=== PATIENT | male | born 1950 | race Caucasian/White ===

== ENCOUNTER 2017-12-15 09:15 | Day surgery (SDC) | payer BC ==
[2017-12-15] MEDS ORDERED: Propofol 200 MG/20 ML SDV ONE (11:30)
--- NOTE | 2017-12-15 17:29 | OR ---
DATE OF OPERATION: 12/15/2017 PREOPERATIVE DIAGNOSIS: Screening colonoscopy. POSTOPERATIVE DIAGNOSES: 1. Transverse colon polyp. 2. Sigmoid polyp. 3. Otherwise, normal colonoscopy. OPERATION: Screening colonoscopy with cold biopsy polypectomy. COMPLICATIONS: None. DRAINS: None. SPECIMENS: 1. Transverse colon polyp. 2. Sigmoid colon polyp. ESTIMATED BLOOD LOSS: Minimal. ANESTHESIA: General propofol anesthesia. INDICATION: Mr. Bunch is a 67-year-old gentleman, whose previous colonoscopy was over 15 years ago. He does have a family history of colon cancer in his mother. He is currently asymptomatic. The above-mentioned procedure was explained. The risks, benefits, and complications were explained. The patient understood and agreed and was brought to the operating room. DESCRIPTION OF PROCEDURE: The patient was brought to the operating room, placed in a left lateral decubitus position on the operating room table. Satisfactory general propofol anesthesia was administered. We began by performing a rectal examination which was within normal limits. I then placed the endoscope by finger introduction into the rectum and subsequently advanced to the level of the cecum. Cecum was identified by the appendiceal orifice, the ileocecal valve and cecal strap. Next, careful evaluation was performed, the mucosa on withdrawal. There were no telangiectasias, no neoplastic growths or diverticula. However, there was a polyp identified in the proximal transverse colon. This was quite small, broad-based, and easily removed by cold biopsy polypectomy. It was completely removed and retrieved. Hemostasis appeared satisfactory. Next, we continue with our evaluation of mucosa and identified another broad-based small polyp in the sigmoid colon along one of the folds. This was also removed by cold biopsy polypectomy completely and retrieved. Hemostasis appeared satisfactory. The remainder of the colon was without any abnormalities. I then performed a retroflexion maneuver in the rectum and this was within normal limits as well. I then subsequently decompressed colon and removed the endoscope. The patient tolerated the procedure well. There were no complications. Instrument count was correct. The patient was awoken in the OR, and taken to the PACU for recovery. Recommend followup colonoscopy in 5 years. NANCI /[id number]
== END 2017-12-15 13:16 | disposition home or self-care (01) ==
LOC: LB.SDS 09:15
PROVIDERS: ATTEND Surgery
DX: Z12.11 Encounter for screening for malignant neoplasm of colon (principal); K63.5 Polyp of colon; I10 Essential (primary) hypertension; Z80.0 Family history of malignant neoplasm of digestive organs; Z79.899 Other long term (current) drug therapy
CPT/HCPCS: 88305; J2704

== ENCOUNTER 2018-01-03 16:45 | Observation (INO) | payer BC ==
[2018-01-03] MEDS ORDERED: Sodium Chloride 0.9% 10 ML Syringe FLUSH PRN (17:43)
[2018-01-03] MEDS ORDERED: Ondansetron 4 MG/2 ML SDV IV PRN (17:43)
[2018-01-03] MEDS: Lactated Ringers 1,000 ML IV SCH (18:12)
[2018-01-04] MEDS: Lactated Ringers 1,000 ML IV SCH (01:54)
--- NOTE | 2018-01-04 07:59 | CR ---
SUPINE AND UPRIGHT ABDOMEN, 01/03/18 There is a moderate amount of gas throughout the ascending, transverse, and proximal descending colon. It does contain scattered air-fluid levels on the upright film. No distended loops of small bowel. No free air. Thee are multiple metallic coils noted within the pelvis. Early obstructive process involving the colon cannot be excluded Followup imaging is recommended if clinically indicated. [id number] [facility]
--- NOTE | 2018-01-04 12:00 | CR ---
DATE OF SERVICE: 01/04/18 CLINICAL DATA: Colonic obstruction SUPINE AND UPRIGHT ABDOMEN: Comparison is made to a prior exam dated 01/03/18. No evidence of obstruction or ileus on today's exam. No free air. There are multiple metallic coils noted in the pelvis. [id number] [facility]
--- NOTE | 2018-01-04 12:10 | CT ---
DATE OF SERVICE: 01/03/18 CLINICAL DATA: Unspecified abdominal pain UNENHANCED ABDOMEN AND PELVIC CT: Multislice acquisition through the abdomen and pelvis without IV or oral contrast was performed. No priors. There are minimal atelectatic changes over the left lung base. The lung bases are otherwise clear. The unenhanced liver appears normal. No focal hepatic lesions. The gallbladder appears normal. The spleen appears normal. The pancreas appears normal. The right and left adrenals appear normal. There are a couple of small nonobstructing renal calculi on the left. There is a 4.2 cm heterogeneous mass-like structure within the lower mid pole of the left kidney anteriorly. An enhanced CT scan is recommended to further evaluate this. The kidneys and collecting systems are otherwise unremarkable. No hydronephrosis or hydroureter. The bladder is partially fluid-filled. There is mild bladder wall thickening. This is probably related to nondistension. Cystitis should be considered. The prostate is enlarged. There are calcifications within the prostate consistent with chronic prostatitis. There is a small hiatal hernia. There is gas throughout the colon. The ascending and transverse colon are mildly distended. There are scattered air-fluid levels throughout the colon also. There is diverticulosis of the descending and sigmoid colon. There is minimal perisigmoidal fat stranding suggesting the possibility of mild early diverticulitis. No free air. No free fluid. No dilated loops of small bowel. No adenopathy. No aortic aneurysm or dissection. There are surgical changes involving the anterior abdominal wall and right inguinal region. IMPRESSION: 1) A 4.2 cm left renal mass. Enhanced renal CT or renal ultrasound is recommended. 2) Diverticulosis. Minimal perisigmoidal fat stranding suggesting the possibility of mild or early diverticulitis. No free air. No evidence of diverticular abscess. 3) Multiple other findings as discussed above. [id number] [facility]
--- NOTE | 2018-01-04 12:15 | US ---
DATE OF SERVICE: 01/04/18 CLINICAL DATA: LEFT RENAL MASS LEFT RENAL ULTRASOUND: Limited exam of the left kidney was performed. The left kidney measures 11.9 x 6.1 x 5.0 cm. The renal cortex is mildly thin consistent with chronic renal parenchymal disease. There is a 4.4 cm heterogeneous solid-appearing mass projecting from the lower mid pole of the left kidney. It has heterogeneous echotexture. Renal carcinoma should be considered. No other significant findings. No hydronephrosis or hydroureter. IMPRESSION: Solid mass left kidney as discussed above. Renal neoplasm including renal carcinoma is suspected. [id number] [facility]
--- NOTE | 2018-01-04 17:24 | PCM.DCSUM1 ---
Discharge Summary - Hospital Course Free Text/Narrative:: Pt was admitted with the diagnosis of colonic obstruction yesterday. He was started on normal saline. his white count was mildly elevated at 11. Plan was to keep him NPO overnight and reassess in the morning. Pt's GT scan did show a 4 cm left renal hypodense mass, for which i did recommended renal Ultrasound in am and also he had mildly enlarged prostate , hence PSA was ordered. Pt had uneventful night. In the morning he was feeling better. his abdominal distension had resolved. He did have 2 normal bowel movements. his white count was down to 8.1 and his electrolytes were stable. His PS was 4.8, and his previous PSA was 4.6 and he has had prostate biopsy in the past which was benign. His abdominal upright Xray shows normal gas pattern with resolved air fluids levels. Pt's IV fluid was discontinued and he was started on clear liquid diet. Over the day he has tolerated the diet well and has not had any abdominal cramps or distension. Has good bowel sounds. Plan was to discharge home today. Pt's renal ultrasound report does show 3.8cm by 3.8 cm solid mass I of the left kidney suspicious for neoplasm. I have discussed the report with pt and his spouse. advised urology followup. Brief History: Presented to clinic yestereay with abdominal distension and pain , workup showed colonic obstruction. pt was admitted for conservative management of bowel obstruction. Kindly see my H&P for details. - Discharge Data Discharge Date: 01/04/18 Discharge Disposition: Home, Self-Care 01 Condition: Good - Patient Instructions Diet: Mechanical Soft Fluid Restriction: 1500 mL Activity: As Tolerated Driving: May Drive Today Showering/Bathing: May Shower Notify Provider of: Fever - Discharge Plan - Discharge Summary/Plan Comment DC Time >30 min.: Yes Discharge Summary/Plan Comment: followup in clinic at 11:30 tomorrow Soft diet and advance as tolerated - General Info Date of Service: 01/04/18 Functional Status: Reports: Tolerating Diet, Ambulating, Urinating - Review of Systems General: Denies: Fever, Weakness, Fatigue, Malaise HEENT: Denies: Contact Lenses, Headaches, Post Nasal Drip Pulmonary: Denies: Cough, Sputum, Hemoptysis Cardiovascular: Denies: Chest Pain, Lightheadedness Gastrointestinal: Reports: Flatus. Denies: Abdominal Pain, Decreased Appetite, Diarrhea, Nausea, Vomiting Genitourinary: Denies: Dysuria, Frequency, Flank Pain Musculoskeletal: Denies: Joint Pain, Joint Swelling Skin: Denies: Bruising, Pruritis, Rash Neurological: Denies: Confusion, Dizziness, Headache, Numbness - Patient Data Vitals - Most Recent: Last Vital Signs Temp 98.2 F 01/04/18 12:00 Pulse 68 01/04/18 12:00 Resp 18 01/04/18 12:00 BP 138/77 01/04/18 12:00 Pulse Ox 98 01/04/18 12:00 Weight - Most Recent: 95.708 kg Lab Results - Last 24 hrs: Laboratory Results - last 24 hr 01/03/18 01/04/18 01/04/18 Range/Units 16:54 07:30 07:30 WBC 7.4 D (4.0-11.0) K/uL RBC 4.83 (4.50-6.50) M/uL Hgb 14.9 (13.0-18.0) g/dL Hct 43.8 (40.0-54.0) % MCV 91 (76-96) fL MCH 30.8 (27.0-32.0) pg MCHC 34.0 (31.0-35.0) g/dL RDW 13.3 (11.0-16.0) % Plt Count 181 (150-400) K/uL MPV 10.3 H (6.0-10.0) fL Neut % (Auto) 62.4 (45.0-70.0) % Lymph % (Auto) 17.0 L (20.0-40.0) % [place] % (Auto) 17.0 H (3.0-10.0) % Eos % (Auto) 3.5 (1.0-5.0) % Baso % (Auto) 0.1 (0.0-0.5) % Neut # (Auto) 4.60 (2.00-7.50) K/uL Lymph # (Auto) 1.25 L (1.50-4.00) K/uL [place] # (Auto) 1.25 H (0.20-0.80) K/uL Eos # (Auto) 0.26 (0.04-0.40) K/uL Baso # (Auto) 0.01 L (0.02-0.10) K/uL Sodium 140 140 (136-145) mmol/L Potassium 4.3 3.7 (3.5-5.1) mmol/L Chloride 102 103 (98-107) mmol/L Carbon Dioxide 27.0 26.1 (21.0-32.0) mmol/L Anion Gap 15.3 H 14.6 (5.0-15.0) mmol/L BUN 21 16 D (8-26) mg/dL Creatinine 1.06 0.95 (0.70-1.30) mg/dL Est Cr Clr Drug Dosing TNP 90.13 Estimated GFR (MDRD) > 60 > 60 (>60) MLS/MIN BUN/Creatinine Ratio 19.8 16.8 (6-25) Glucose 112 H 97 (74-100) mg/dL Calcium 8.9 8.4 L (8.5-10.1) mg/dL Total Bilirubin 0.6 (0.0-1.0) mg/dL AST 73 H (15-37) U/L ALT 112 H (12-78) U/L Alkaline Phosphatase 90 (46-116) U/L Total Protein 7.5 (6.4-8.2) g/dL Albumin 4.0 (3.4-5.0) g/dL Globulin 3.5 (2.2-4.2) g/dL Albumin/Globulin Ratio 1.1 (0.8-2.0) Prostate Specific Ag 4.88 H (0.00-4.00) ng/mL Med Orders - Current: Current Medications Lactated Ringer's (Ringers, Lactated) 1,000 mls @ 125 mls/hr IV ASDIRECTED [facility] [place] Last Admin: 01/04/18 01:54 Dose: 125 mls/hr Ondansetron HCl (Zofran) 4 mg IV Q6H PRN PRN Reason: Nausea/Vomiting Last Admin: 01/03/18 18:12 Dose: 4 mg Sodium Chloride (Saline Flush) 10 ml FLUSH ASDIRECTED PRN PRN Reason: Keep Vein Open Last Admin: 01/03/18 18:17 Dose: 10 ml - Exam General: Reports: Alert, Oriented HEENT: Reports: Pupils Equal, Pupils Reactive, EOMI, Mucous Membr. Moist/[place] Neck: Reports: Supple Lungs: Reports: Clear to Auscultation, Normal Respiratory Effort Cardiovascular: Reports: Regular Rate, Regular Rhythm GI/Abdominal Exam: Normal Bowel Sounds, Soft, Non-Tender, No Organomegaly, No Distention, No Abnormal Bruit, No Mass, Pelvis Stable Extremities: Normal Inspection, Normal Range of Motion, Non-Tender, No Pedal Edema, Normal Capillary Refill Skin: Reports: Warm, Intact Neurological: Reports: No New Focal Deficit Psy/Mental Status: Reports: Alert, Normal Affect, Normal Mood *Q Meaningful Use (DIS) - VTE *Q VTE Criteria *Q: - Stroke *Q Stroke Criteria *Q: - AMI *Q AMI Criteria *Q:
== END 2018-01-04 16:45 | disposition home or self-care (01) ==
LOC: LB.CLINIC 16:45 → LB.MS 17:44
PROVIDERS: ADMIT Family Medicine; ATTEND Family Medicine
DX: K56.609 Unspecified intestinal obstruction, unspecified as to partial versus complete obstruction (principal); Z88.8 Allergy status to other drugs, medicaments and biological substances; Z79.899 Other long term (current) drug therapy
CPT/HCPCS: 36415; 74018; 74176; 76775; 80048; 80053; 84153; 85025; 96361; 96374; G0378; J2405; J7050; J7120

== ENCOUNTER 2023-02-23 10:22 | Day surgery (SDC) | payer BC, MEDICARE ==
[~2023-02-23 10:22] MED LIST: Metoclopramide 10 MG/2 ML SDV IV PRN
[2023-02-23] MEDS: Sodium Chloride 0.9% 1,000 ML IV SCH (11:31)
== END 2023-02-23 14:45 | disposition home or self-care (01) ==
LOC: LB.SDS 10:22
PROVIDERS: ATTEND Surgery
DX: Z12.11 Encounter for screening for malignant neoplasm of colon (principal); K57.30 Diverticulosis of large intestine without perforation or abscess without bleeding; I10 Essential (primary) hypertension; Z79.899 Other long term (current) drug therapy; Z91.041 Radiographic dye allergy status
CPT/HCPCS: J2704; J7030

== ENCOUNTER 2023-05-21 11:13 | Emergency (ER) | payer MEDICARE ==
[2023-05-21] MEDS ORDERED: Erythromycin Base 0.5% Ophth Oint 3.5 GM Tube ONE (12:00)
== END 2023-05-21 12:08 | disposition home or self-care (01) ==
LOC: LB.ED 11:13
DX: H10.9 Unspecified conjunctivitis (principal); I10 Essential (primary) hypertension; Z91.041 Radiographic dye allergy status; Z79.899 Other long term (current) drug therapy
CPT/HCPCS: 99283; A9270